=== PATIENT | male | born 1980 | race Caucasian/White ===

== ENCOUNTER 2019-11-22 12:57 | Emergency (ER) | payer BC ==
[2019-11-22 13:55] LABS: BLOOD UREA NITROGEN,BUN 18 mg/dL (7.0-18.0); CHLORIDE,CL 104 mmol/L (98-107); GLUCOSE RANDOM 92 mg/dL (74-106); POTASSIUM,K 4.6 mmol/L (3.5-5.1); SODIUM,NA 142 mmol/L (136-148)
--- NOTE | 2019-11-22 14:18 | EDM.PDOC ---
ED HPI GENERAL MEDICAL PROBLEM - General Chief Complaint: Chest Pain Stated Complaint: TIGHTNESS OF CHEST Time Seen by Provider: 11/22/19 13:46 - History of Present Illness INITIAL COMMENTS - FREE TEXT/NARRATIVE: HPI 39-year-old male smoker*presents for evaluation of recurrent episode of chest tightness, shortness breath, clenching of his jaw, and clenching of his bilateral upper extremities that occurred suddenly while at work. Patient reports he is similar episode that occurred 3 days prior, and unremarkable cardiac evaluation and outside ED and has a pending stress test. Patient denies drug use, denies recent stressors. Denies a history of DVT or PE. * Patient reports that he has stopped smoking recently and a switch to nicotine gum. M/S/F/SocHx notable for: please see HPI; remainder reviewed with patient and in chart. ROS: Negative constitutional, eye, cardiovascular, pulmonary, GI, , MSK, skin , neurologic, psychiatric, endocrine unless noted in the HPI. Exam HR 65, RR 18, BP 144/103, T 37.0C, SaO2 90% on room air. Gen: Pleasant, non-toxic appearing, resting comfortably. HEENT: NC, AT, PEERL, EOMI. Resp: Clear to auscultation bilaterally, normal work of breathing, no accessory muscle usage. Card: Regular rate and rhythm with no murmurs, rubs, or gallops, extremities warm and well perfused. GI: Non-tender to palpation throughout all quadrants, no focal tenderness at McBurney's point, negative Jacobson's sign, non-distended, no rebound or guarding. : No suprapubic tenderness to palpation. MSK: No visible deformities, strength and tone without visually appreciable deficit. Skin: Normal color with no visible lesions. Neuro: alert and oriented 3, no facial asymmetry, vision and hearing WNL. Psych: Mood and affect appropriate. Labs / Imaging: EKG: SR at [address]-segment elevations or depressions, T-wave inversions or new LBBB. PA interval 155 msec, QTc 424 msec, no delta waves, epsilon waves, coved or saddle ST-segment changes in leads V1-3, preseptal or inferior lead Q-waves, biphasic P-waves, or T-wave inversions; no LVH. WBC 7.37, HB 15.6, d-dimer <0.19, sodium 142, potassium 4.6, magnesium 1.9, troponin <0.050, TSH 1.73, UDS negative. MDM Previous chart, nursing note, labs, imaging, and vitals reviewed. A: 39-year-old male smoker (recently quit cigarettes, now on gum) presents for evaluation of recurrent episode of chest tightness, shortness breath, clenching of his jaw, and clenching of his bilateral upper extremities that occurred suddenly while at work. DDx: dehydration, electrolyte abnormalities, PE, pericarditis, myocarditis, dissection, unstable angina, anxiety, sympathomimetic toxidrome, hyperthyroidism. Evaluation: tentatively suspect anxiety as a cause of patients symptoms, however this is not definitive at the present time. ECG without evidence of arrhythmia, ischemia, or features consistent with pericarditis myocarditis, which in the setting of a negative troponin effectively excludes ACS, as well as the inflammatory cardiac conditions. Patient is a low pretest probability by both clinical gestalt as well as wells score (see below), indicating that the negative d-dimer is appropriate for PE rule out/risk stratification. Similarly the unremarkable chest x-ray, low pretest probability by clinical Gestalt, and a negative d-dimer is appropriate for dissection rule out. Patient has a TSH within normal limits, electrolyte within normal limits, H&H is within normal limits, and an otherwise unremarkable CBC. Unstable angina was considered on the differential, however the entirety the symptoms are highly atypical, and should this be the case, he has a low pretest probability by heart score and is appropriate for PCP follow-up on an outpatient basis. His drug screen is negative and he is no clinically apparent toxidromes. Patient provided with reassurance and instructed to follow up with primary care. Impression: palpitations. (please reference below for remainder of encounter information) Wilman' (Signs & Sx of DVT - 0, PE is #1 or equally likelihood - 0, HR > 100 - 0 , immobilization of >=3 days or surgery in last 28 days - 0, prior DVT or PE - 0 , hemoptysis - 0, malignancy w/ tx in last 6 mo or palliative - 0). HEART 1 (Hx - 0, EKG - 0, age - 0, risk factors - 1, troponin - 0; 30 day MACE: less than or equal to 1.7%). chest pain Pain Score (Numeric/FACES): 4 - Related Data Allergies Allergy/AdvReac Type Severity Reaction Status Date / Time bee venom protein (honey bee) Allergy Hives Verified 11/22/19 13:03 Home Meds: Home Meds . [No Known Home Meds] 11/20/19 [History] Past Medical History - Past Health History Medical/Surgical History: Denies Medical/Surgical History - Infectious Disease History Infectious Disease History: Reports: Chicken Pox Social & Family History - Family History Family Medical History: Noncontributory - Tobacco Use Smoking Status *Q: Current Every Day Smoker Years of Tobacco use: 15 Packs/Tins Daily: 0.1 - Caffeine Use Caffeine Use: Reports: None - Alcohol Use Days Per Week of Alcohol Use: 7 Number of Drinks Per Day: 2 Total Drinks Per Week: 14 - Recreational Drug Use Recreational Drug Use: No ED ROS GENERAL - Review of Systems Review Of Systems: See Below ED EXAM, GENERAL - Physical Exam Exam: See Below Course - Vital Signs Last Recorded V/S: Last Vital Signs Temp 37.0 C 11/22/19 12:58 Pulse 62 11/22/19 13:59 Resp 18 11/22/19 13:59 BP 140/96 H 11/22/19 13:59 Pulse Ox 97 11/22/19 13:59 - Orders/Labs/Meds Orders: Active Orders 24 hr Category Date Time Status EKG 12 Lead [EKG Documentation Completion] [RC] STAT Care 11/22/19 12:59 Active CXR [Chest 2V] [CR] Stat Exams 11/22/19 12:59 Taken Labs: Laboratory Tests 11/22/19 11/22/19 11/22/19 Range/Units 13:00 13:08 13:08 WBC 7.37 (4.0-11.0) K/uL RBC 5.07 (4.50-5.90) M/uL Hgb 15.6 (13.0-17.0) g/dL Hct 46.2 (38.0-50.0) % MCV 91.1 (80.0-98.0) fL MCH 30.8 (27.0-32.0) pg MCHC 33.8 (31.0-37.0) g/dL RDW Std Deviation 43.3 (28.0-62.0) fl RDW Coeff of Asim 13 (11.0-15.0) % Plt Count 235 (150-400) K/uL MPV 9.30 (7.40-12.00) fL Neut % (Auto) 71.4 (48.0-80.0) % Lymph % (Auto) 22.4 (16.0-40.0) % Wilbarger % (Auto) 5.8 (0.0-15.0) % Eos % (Auto) 0.1 (0.0-7.0) % Baso % (Auto) 0.3 (0.0-1.5) % Neut # (Auto) 5.3 (1.4-5.7) K/uL Lymph # (Auto) 1.7 (0.6-2.4) K/uL Wilbarger # (Auto) 0.4 (0.0-0.8) K/uL Eos # (Auto) 0.0 (0.0-0.7) K/uL Baso # (Auto) 0.0 (0.0-0.1) K/uL Nucleated RBC % 0.0 /100WBC Nucleated RBCs # 0 K/uL D-Dimer, Quantitative < 0.19 (0.0-0.50) mg/L FEU Sodium (136-148) mmol/L Potassium (3.5-5.1) mmol/L Chloride (98-107) mmol/L Carbon Dioxide (21.0-32.0) mmol/L BUN (7.0-18.0) mg/dL Creatinine (0.8-1.3) mg/dL Est Cr Clr Drug Dosing Estimated GFR (MDRD) ml/min Glucose (74-106) mg/dL Calcium (8.5-10.1) mg/dL Magnesium (1.8-2.4) mg/dL Troponin I (0.000-0.056) ng/mL TSH 3rd Generation (0.36-3.74) uIU/mL Urine Opiates Screen NEGATIVE (NEGATIVE) Ur Oxycodone Screen NEGATIVE (NEGATIVE) Urine Methadone Screen NEGATIVE (NEGATIVE) Ur Barbiturates Screen NEGATIVE (NEGATIVE) Ur Phencyclidine Scrn NEGATIVE (NEGATIVE) Ur Amphetamine Screen NEGATIVE (NEGATIVE) U Methamphetamines Scrn NEGATIVE (NEGATIVE) U Benzodiazepines Scrn NEGATIVE (NEGATIVE) U Cocaine Metab Screen NEGATIVE (NEGATIVE) U Marijuana (THC) Screen NEGATIVE (NEGATIVE) 11/22/19 Range/Units 13:08 WBC (4.0-11.0) K/uL RBC (4.50-5.90) M/uL Hgb (13.0-17.0) g/dL Hct (38.0-50.0) % MCV (80.0-98.0) fL MCH (27.0-32.0) pg MCHC (31.0-37.0) g/dL RDW Std Deviation (28.0-62.0) fl RDW Coeff of Asim (11.0-15.0) % Plt Count (150-400) K/uL MPV (7.40-12.00) fL Neut % (Auto) (48.0-80.0) % Lymph % (Auto) (16.0-40.0) % Wilbarger % (Auto) (0.0-15.0) % Eos % (Auto) (0.0-7.0) % Baso % (Auto) (0.0-1.5) % Neut # (Auto) (1.4-5.7) K/uL Lymph # (Auto) (0.6-2.4) K/uL Wilbarger # (Auto) (0.0-0.8) K/uL Eos # (Auto) (0.0-0.7) K/uL Baso # (Auto) (0.0-0.1) K/uL Nucleated RBC % /100WBC Nucleated RBCs # K/uL D-Dimer, Quantitative (0.0-0.50) mg/L FEU Sodium 142 (136-148) mmol/L Potassium 4.6 (3.5-5.1) mmol/L Chloride 104 (98-107) mmol/L Carbon Dioxide 28.0 (21.0-32.0) mmol/L BUN 18 (7.0-18.0) mg/dL Creatinine 1.0 (0.8-1.3) mg/dL Est Cr Clr Drug Dosing TNP Estimated GFR (MDRD) > 60.0 ml/min Glucose 92 (74-106) mg/dL Calcium 9.6 (8.5-10.1) mg/dL Magnesium 1.9 (1.8-2.4) mg/dL Troponin I < 0.050 (0.000-0.056) ng/mL TSH 3rd Generation 1.73 (0.36-3.74) uIU/mL Urine Opiates Screen (NEGATIVE) Ur Oxycodone Screen (NEGATIVE) Urine Methadone Screen (NEGATIVE) Ur Barbiturates Screen (NEGATIVE) Ur Phencyclidine Scrn (NEGATIVE) Ur Amphetamine Screen (NEGATIVE) U Methamphetamines Scrn (NEGATIVE) U Benzodiazepines Scrn (NEGATIVE) U Cocaine Metab Screen (NEGATIVE) U Marijuana (THC) Screen (NEGATIVE) Departure - Departure Time of Disposition: 14:17 Disposition: Home, Self-Care 01 Clinical Impression: Palpitations, Chest pain - Discharge Information Referrals: PCP,None [Primary Care Provider] - Additional Instructions: You were in seen in the [facility] Emergency Department for evaluation of chest pain, shortness breath, and clenching of your extremities and tightness of your job. At the time of your evaluation your symptoms are tentatively suspected to be stress related, however further evaluation will be required by your primary care physician for a more appropriate diagnosis. Your evaluation the emergency department was unremarkable, should you have any new or concerning symptoms please return immediately to the emergency department. Please read and follow all of the instructions below. Please follow up with your primary care physician within 48 hours. When calling for follow-up care, please make the office aware that this follow-up is from your recent emergency room visit. If for any reason you are refused follow-up, please contact the [facility] Emergency Department at and asked to speak to the emergency department charge nurse. Your care today was limited to identifying and treating emergent medical problems only. Many people have subtle differences in their test results that require follow up with their outpatient physician(s) to correctly determine if this represents a normal variation or concerning abnormality with respect to your specific health. The care given to you today was limited to identifying and treating emergent medical problems - you need to request a copy of all of your medical records from today's visit and follow up with your outpatient physician(s) to review both today's visit and your overall health. If you have any new symptoms or if you are at all concerned about your health please return immediately to the emergency department. Prescriptions: If you are uninsured or have financial difficulties with filling your prescription(s), you may consider using a free pharmacy discount service such as [employer] ([employer]) or [employer] ([employer]). These services allow you to search for a medication on your phone (or computer) and obtain a coupon that usually has a significant discount from the list campbell at a pharmacy. Your physician as well as [facility] does not have a financial relationship with either of these services. You may also wish to speak with your physician to determine if lower cost prescriptions are possible. Obtaining primary care: 1. [facility] provides pediatrics (children), family medicine (children, adults, and some obstetrical care), and internal medicine (adults). Further specialty care is also available. Same day appointments are available. They may be contacted at [phone] and are open Thursday through Thursday 8 AM to 5 PM. The [facility] are located at [facility], [address] [place] [address]. 2. [facility] offers family medicine, internal medicine, womens health, and further specialty care. [facility] may be contacted at [phone]. [facility] is located at [address] [facility] [address]. 3. If you have health insurance, please also contact your insurer for a list of accepting providers under your policy, you may contact these providers for further health care. Occupational health: Work related injuries may consider following up with [facility], . Occupational health services are located at [address] [place] [address] and are open Thursday through Thursday from 7: 30 am to 5:00 pm. Obstetrical and Gynecological Care: [facility], , Thursday through Thursday 8 AM to 5 PM. [address], [place] [address]. Eyecare: If you have an eye injury you should follow up with your commercial banker or with [facility], at [phone] or [phone] , they are located at [address] [place] [address]. [facility] Thomas Meza DDS. [address] [facility].[place], [place]. Ph. [phone] Neptali Meza DDS MS. [address] [facility] [address], [place], [place]. Ph. Jose J Valencia DDS. 10 09/[address] [place] [address]. Ph. [phone] Jacob Ball DDS. [address] [facility] 4 [place], [place]. Ph. [phone] Warren Robledo DDS PC. [address] [facility] [address] [place], [place]. Ph. Yves Becker DDS. [address] [place] [address]. Ph. [phone] [facility]. [address] [place], [place]. Ph. [phone] [place]. [address] [place] [address], [place], [place]. Ph. [phone] [facility] [address] [place] [address]. Ph. [facility]. [address] [place] [address] [address] [place], [place]. Ph. [facility]. [address] [place], [place]. Ph. [phone] Chest Pain of Unclear Cause You have been seen for chest pain. The cause of your pain is not yet known. You should follow up with your primary care physician in the next day to discuss having a cardiac stress test within 48 hours of today. Your doctor has learned about your medical history, examined you, and checked any tests that were done. Still, it is unclear why you are having pain. The doctor thinks there is only a very small chance that your pain is caused by a life-threatening condition. Later, your primary care doctor might do more tests or check you again. Sometimes chest pain is caused by a dangerous condition, like a heart attack, aorta injury, blood clot in the lung, or collapsed lung. It is unlikely that your pain is caused by a life-threatening condition if: Your chest pain lasts only a few seconds at a time; you are not short of breath, nauseated (sick to your stomach), sweaty, or lightheaded; your pain gets worse when you twist or bend; your pain improves with exercise or hard work. Chest pain is serious. It is VERY IMPORTANT that you follow up with your regular doctor and seek medical attention immediately here or at the nearest Emergency Department if your symptoms become worse or they change. YOU SHOULD SEEK MEDICAL ATTENTION IMMEDIATELY, EITHER HERE OR AT THE NEAREST EMERGENCY DEPARTMENT, IF ANY OF THE FOLLOWING OCCURS: Your pain gets worse. Your pain makes you short of breath, nauseated, or sweaty. Your pain gets worse when you walk, go up stairs, or exert yourself. You feel weak, lightheaded, or faint. It hurts to breathe. Your leg swells. Your symptoms get worse or you have new symptoms or concerns. High Blood Pressure (Hypertension) When you were in the emergency department you had an abnormally high blood pressure. High blood pressure can be without symptoms. However high blood pressure can lead to many medical problems including kidney disease, strokes, and heart attacks. Your blood pressure may have been elevated due to pain or the stress of being in the emergency department, however half of people with an elevated blood pressure in the emergency department have rn cardiac rehab problems with high blood pressure. Please see your primary care physician in 2-3 days for a repeat check of your blood pressure. This may help prevent many health serious problems in the future. Please return to the emergency department if you develop any of the following: chest pain, shortness of breath, new or severe headache, changes in vision or hearing, weakness, or if you are otherwise concerned about your health. Sepsis Event Note - Evaluation Sepsis Screening Result: No Definite Risk - Focused Exam Vital Signs: Vital Signs Temp Pulse Resp BP Pulse Ox 03/10/20 13:59 62 18 140/96 H 97 11/22/19 12:58 37.0 C 65 18 144/103 H 98 Date Exam was Performed: 11/22/19 Time Exam was Performed: 14:17 - My Orders Last 24 Hours: My Active Orders 11/22/19 12:59 EKG 12 Lead [EKG Documentation Completion] [RC] STAT CXR [Chest 2V] [CR] Stat - Assessment/Plan Last 24 Hours: My Active Orders 11/22/19 12:59 EKG 12 Lead [EKG Documentation Completion] [RC] STAT CXR [Chest 2V] [CR] Stat
--- NOTE | 2019-11-22 14:32 | CR ---
Chest: 2 views of the chest were obtained. Comparison: No prior chest imaging. Heart size and mediastinum are normal. Lungs are clear with no acute parenchymal change. Minimal scoliosis is noted within the spine. Impression: 1. Nothing acute is seen on 2 view chest x-ray. Diagnostic code #2 This report was dictated in Mountain Standard Time
[2019-11-22 19:43] VITALS: BP 132/78; PULSE 70
== END 2019-11-22 14:20 | disposition home or self-care (01) ==
LOC: MW.ED 12:57
DX: R00.2 Palpitations (principal); R07.89 Other chest pain; F17.210 Nicotine dependence, cigarettes, uncomplicated; Z91.030 Bee allergy status
CPT/HCPCS: 36415; 71046; 71046-26; 80048; 80305-QW; 83735; 84443; 84484; 85025; 85379; 93005; 99284; 99285-25